=== PATIENT | female | born 1995 | race Caucasian/White ===

== ENCOUNTER 2016-12-11 11:01 | Emergency (ER) | payer BC, MEDICAID ==
[2016-12-11 11:27] VITALS: BP 152/70
--- NOTE | 2016-12-11 11:50 | EDM.PDOC ---
ED HPI ENT - General Chief Complaint: ENT Problem Stated Complaint: SORE THROAT, SPOTS, DIFFICULTY SWOLLOWING Time Seen by Provider: 12/11/16 11:45 Source: Reports: Patient, Family History Limitations: Reports: No limitations - History of Present Illness INITIAL COMMENTS - FREE TEXT/NARRATIVE: pt arrived with a sore throat and body aches. She has been ill for about 2 days. Timing/Duration: Reports: Day(s):, Getting worse Location: Reports: throat Associated symptoms: Reports: fever/chills - Related Data Allergies/ADRs: Allergies Allergy/AdvReac Type Severity Reaction Status Date / Time No Known Allergies Allergy Verified 12/11/16 11:15 Home Meds: Home Meds Sertraline [Zoloft] 50 mg PO DAILY 12/11/16 [History] Past Medical History Psychiatric History: Reports: Anxiety, Depression - Past Surgical History Female Surgical History: Reports: section Social & Family History - Tobacco Use Smoking Status *Q: Never Smoker Second Hand Smoke Exposure: No - Recreational Drug Use Recreational Drug Use: No ED ROS ENT - Review of Systems Review Of Systems: See Below Constitutional: Reports: fever, chills, malaise HEENT: Reports: Throat pain, Throat swelling Respiratory: Reports: No Symptoms Cardiovascular: Reports: No symptoms Endocrine: Reports: no symptoms GI/Abdominal: Reports: No symptoms : Reports: no symptoms ED EXAM, ENT - Physical Exam Exam: See Below Text/Narrative:: Pt has a sore throat and body aches Exam Limited By: No limitations General Appearance: alert, no apparent distress Ears: other ( drum is red on the rt side. ) Nose: normal inspection Mouth/Throat: Throat swelling, Tonsillar exudates Head: atraumatic Neck: lymphadenopathy (R), lymphadenopathy (L) Respiratory/Chest: no respiratory distress Cardiovascular: regular rate, rhythm Course - Vital Signs Last Recorded V/S: Last Vital Signs Temp 37.3 C 12/11/16 11:18 Pulse 87 12/11/16 11:18 Resp 16 12/11/16 11:18 BP 152/70 H 12/11/16 11:18 Pulse Ox 96 12/11/16 11:18 - Re-Assessments/Exams Free Text/Narrative Re-Assessment/Exam: 12/11/16 11:48 Pt had a positive strept. Departure - Departure Time of Disposition: 11:48 Disposition: Home, Self-Care 01 Condition: fair Clinical Impression: Streptococcal pharyngitis Forms: ED Department Discharge Care Plan Goals: push fluids, tylenol and motrin for discomfort, amoxicillin 500 mg 2 caps now and 1 cap tid for 10 dys.
== END 2016-12-11 12:01 | disposition home or self-care (01) ==
LOC: JP.ED 11:01
DX: J02.0 Streptococcal pharyngitis (principal); F41.9 Anxiety disorder, unspecified; F32.9 Major depressive disorder, single episode, unspecified; Z79.899 Other long term (current) drug therapy; Z98.890 Other specified postprocedural states
CPT/HCPCS: 87430; 99283

== ENCOUNTER 2017-08-13 16:31 | Emergency (ER) | payer BC, MEDICAID ==
[2017-08-13] MEDS ORDERED: Acetaminophen 500 MG Tab PO ONE (18:48)
--- NOTE | 2017-08-13 18:54 | EDM.PDOC ---
ED HPI GENERAL MEDICAL PROBLEM - General Chief Complaint: Abdominal Pain Stated Complaint: L ABD PAIN Time Seen by Provider: 08/13/17 18:35 Source of Information: Reports: Patient History Limitations: Reports: No Limitations - History of Present Illness INITIAL COMMENTS - FREE TEXT/NARRATIVE: 22 yo female presents with LLQ abdominal pain that has been associated with her menses. The pain goes away mid cycle and then returns again at the beginning of her cycle. The pain gets a little worse with each menstrual cycle. Her primary told her to come to the ER when she has this pain to get an US to R/O a cyst on her ovary. She denies fever, a change in her bowels, dysuria, missed or late menses, or a history of endometriosis. 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: Reports: Acetaminophen Lower Abdominal Pain Score (Numeric/FACES): 7 - Related Data Allergies Allergy/AdvReac Type Severity Reaction Status Date / Time No Known Allergies Allergy Verified 08/13/17 17:49 Home Meds: Home Meds Sertraline [Zoloft] 50 mg PO DAILY 12/11/16 [History] buPROPion HCl [Wellbutrin Xl] 150 mg PO DAILY 08/13/17 [History] 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: Psychiatric History: Reports: Anxiety, Depression - Past Surgical History Female Surgical History: Reports: Section Social & Family History - Tobacco Use Smoking Status *Q: Never Smoker Second Hand Smoke Exposure: No - Caffeine Use Caffeine Use: Reports: Coffee - Recreational Drug Use Recreational Drug Use: No Recreational Drug Type: Reports: Marijuana/Hashish Recreational Drug Use Frequency: Rarely ED ROS GENERAL - Review of Systems Review Of Systems: See Below Constitutional: Reports: No Symptoms HEENT: Reports: No Symptoms Respiratory: Reports: No Symptoms Cardiovascular: Reports: No Symptoms GI/Abdominal: Reports: Abdominal Pain (LLQ) : Reports: No Symptoms Skin: Reports: No Symptoms ED EXAM, GI/ABD - Physical Exam Exam: See Below Exam Limited By: No Limitations General Appearance: Alert, WD/WN, No Apparent Distress Eyes: Bilateral: Normal Appearance Ears: Normal External Exam, Normal Canal, Hearing Grossly Normal, Normal TMs Nose: Normal Inspection, Normal Mucosa, No Blood Throat/Mouth: Normal Inspection, Normal Lips, Normal Oropharynx, No Airway Compromise Head: Atraumatic, Normocephalic Neck: Normal Inspection, Supple, Non-Tender Respiratory/Chest: No Respiratory Distress, Lungs Clear, Normal Breath Sounds, No Accessory Muscle Use Cardiovascular: Regular Rate, Rhythm, No Edema GI/Abdominal Exam: Normal Bowel Sounds, Soft, Non-Tender Back Exam: Normal Inspection. No: CVA Tenderness (R), CVA Tenderness (L) Extremities: Normal Inspection, Normal Range of Motion, Non-Tender, No Pedal Edema Neurological: Alert, Oriented, CN II-XII Intact, Normal Cognition, No Motor/ Sensory Deficits Psychiatric: Normal Affect, Normal Mood Skin Exam: Warm, Dry, Intact, Normal Color, No Rash Lymphatic: No Adenopathy Course - Vital Signs Last Recorded V/S: Last Vital Signs Temp 36.4 C 08/13/17 19:01 Pulse 75 08/13/17 19:01 Resp 14 08/13/17 19:01 BP 107/63 08/13/17 19:01 Pulse Ox 94 L 08/13/17 19:01 - Orders/Labs/Meds Orders: Active Orders 24 hr Category Date Time Status Pelvis Non OB Comp [US] Stat Exams 08/13/17 18:48 Ordered Meds: Medications Discontinued Medications Generic Name Dose Route Start Last Admin Trade Name Freq PRN Reason Stop Dose Admin Acetaminophen 1,000 mg 08/13/17 18:48 08/13/17 18:59 Tylenol Extra Strength PO 08/13/17 18:49 1,000 mg ONETIME ONE Administration - Radiology Interpretation Free Text/Narrative:: Pelvic US-no pathology identified. Departure - Departure Time of Disposition: 19:48 Disposition: Home, Self-Care 01 Condition: Good Clinical Impression: Pelvic pain - Discharge Information Referrals: Nereida Pena NP [Primary Care Provider] - Forms: ED Department Discharge - My Orders Last 24 Hours: My Active Orders 08/13/17 18:48 Pelvis Non OB Comp [US] Stat - Assessment/Plan Last 24 Hours: My Active Orders 08/13/17 18:48 Pelvis Non OB Comp [US] Stat
[2017-08-13 19:02] VITALS: BP 107/63
== END 2017-08-13 19:56 | disposition home or self-care (01) ==
LOC: JP.ED 16:31
DX: R10.2 Pelvic and perineal pain (principal); Z79.899 Other long term (current) drug therapy
CPT/HCPCS: 76856; 99284; A9270

== ENCOUNTER 2017-11-24 02:55 | Emergency (ER) | payer BC ==
--- NOTE | 2017-11-24 04:10 | EDM.PDOC ---
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 She is blood type Rh negative. Says she has a known subchorionic hematoma. Also, her nausea has gone away as well as her breast tenderness so she is concerned that she may no longer be . Onset: Today Onset Date: 11/24/17 Duration: Minutes: Location: Reports: Other (vaginal bleeding, minimal) Quality: Reports: Other (no pain) Severity: Mild Improves with: Reports: None Worsens with: Reports: Other (unknown) Context: Reports: Other (first trimester IUP) Associated Symptoms: Reports: No Other Symptoms Treatments ODD PIECE CHECKER: Reports: Other (see below) (none) Uterine Pain Score (Numeric/FACES): 3 - Related Data Allergies Allergy/AdvReac Type Severity Reaction Status Date / Time No Known Allergies Allergy Verified 11/24/17 03:52 Home Meds: Home Meds Acetaminophen/Diphenhydramine [Tylenol Pm Ex-Strength Caplet] 1 tab PO DAILY [History] Polyethylene Glycol 3350 [MiraLAX] 1 dose PO ASDIRECTED 11/24/17 [History] Vit #108/Iron/FA [ One Tablet] 1 tab PO DAILY 11/24/17 [History ] 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: Psychiatric History: Reports: Anxiety, Depression - Past Surgical History Female Surgical History: Reports: Section Social & Family History - Tobacco Use Smoking Status *Q: Never Smoker Second Hand Smoke Exposure: No - Caffeine Use Caffeine Use: Reports: Coffee - Recreational Drug Use Recreational Drug Use: No Recreational Drug Type: Reports: Marijuana/Hashish Recreational Drug Use Frequency: Rarely ED ROS GENERAL - Review of Systems Review Of Systems: See Below Constitutional: Reports: No Symptoms HEENT: Reports: No Symptoms Respiratory: Reports: No Symptoms Cardiovascular: Reports: No Symptoms GI/Abdominal: Reports: No Symptoms : Reports: Other (new brown vaginal discharge) Musculoskeletal: Reports: No Symptoms Skin: Reports: No Symptoms Neurological: Reports: No Symptoms ED EXAM, GI/ABD - Physical Exam Exam: See Below Exam Limited By: No Limitations General Appearance: Alert, WD/WN, No Apparent Distress Eyes: Bilateral: Normal Appearance Ears: Normal External Exam, Normal Canal, Hearing Grossly Normal Nose: Normal Inspection, Normal Mucosa, No Blood Throat/Mouth: Normal Inspection, Normal Lips, Normal Oropharynx, Normal Voice, No Airway Compromise Head: Atraumatic, Normocephalic Neck: Normal Inspection, Supple Respiratory/Chest: No Respiratory Distress, Lungs Clear, Normal Breath Sounds, No Accessory Muscle Use Cardiovascular: Regular Rate, Rhythm, No Edema GI/Abdominal Exam: Normal Bowel Sounds, Soft, Non-Tender, No Distention Back Exam: Normal Inspection Extremities: Normal Inspection, Normal Range of Motion, Non-Tender Neurological: Alert, Oriented, CN II-XII Intact, Normal Cognition, No Motor/ Sensory Deficits Psychiatric: Normal Affect, Normal Mood Skin Exam: Warm, Dry, Intact, Normal Color, No Rash Course - Vital Signs Text/Narrative:: Nursing unable to hear heart tones with the hand held doppler. - Orders/Labs/Meds Orders: Active Orders 24 hr Category Date Time Status RHOGAM, [RHIG WORKUP, ] [BBK] Stat Lab 11/24/17 03:56 Stop Req Departure - Departure Time of Disposition: 04:30 Disposition: Home, Self-Care 01 Condition: Good Clinical Impression: First trimester - Discharge Information Referrals: Jerome Escamilla MD [Primary Care Provider] - Forms: ED Department Discharge - My Orders Last 24 Hours: My Active Orders 11/24/17 03:56 RHOGAM, [RHIG WORKUP, ] [BBK] Stat - Assessment/Plan Last 24 Hours: My Active Orders 11/24/17 03:56 RHOGAM, [RHIG WORKUP, ] [BBK] Stat
[2017-11-24 04:26] VITALS: BP 123/59
== END 2017-11-24 04:31 | disposition home or self-care (01) ==
LOC: JP.ED 02:55
DX: Z34.91 Encounter for supervision of normal pregnancy, unspecified, first trimester (principal); Z3A.11 11 weeks gestation of pregnancy
CPT/HCPCS: 36415; 99283